=== PATIENT | male | born 1970 | race Caucasian/White ===

== ENCOUNTER 2021-11-22 18:38 | Emergency (ER) | payer OTHER ==
[2021-11-22] MEDS ORDERED: LOVASTATIN10 M1 PO (19:48)
[2021-11-22] MEDS ORDERED: SYNTHROID25 MCG PO (19:48)
[2021-11-22] MEDS ORDERED: METFORMIN500 M2 PO (19:49)
[2021-11-22] MEDS ORDERED: VOLTAREN75 MG PO (19:51)
[2021-11-22 20:02] VITALS: BP 146/95
== END 2021-11-22 20:26 | disposition home or self-care (01) | DRG 563 ==
LOC: ED 18:38
DX: S86.911A Strain of unspecified muscle(s) and tendon(s) at lower leg level, right leg, initial encounter (principal); E11.9 Type 2 diabetes mellitus without complications; X50.0XXA Overexertion from strenuous movement or load, initial encounter; Y93.89 Activity, other specified; Y99.0 Civilian activity done for income or pay